=== PATIENT | female | born 1940 | race Asian ===

== ENCOUNTER → 2018-07-02 15:34 | Outpatient (CLI) | payer MEDICARE, OTHER, SELFPAY ==
--- NOTE | 2018-07-02 | DI.MRI.S_ITS ---
PROCEDURE: MR LUMBAR SPINE WO CON INDICATIONS: BACK PAIN TECHNIQUE: Noncontrast sagittal T1 spin echo and T2 fast echo, sagittal STIR, axial T1 and T2 fast spin echo through the lumbar spine. In cases with scoliosis, additional coronal T2 fast spin echo may be performed. COMPARISON: None. FINDINGS: Image quality: Excellent. Alignment and Curvature: There is grade 1 L4-L5 and L5-S1 degenerative anterolisthesis. There is trace L2-L3 and L3-L4 degenerative retrolisthesis. There is 11? of convex left lumbar spine scoliosis. Bone Marrow: Reactive endplate change is noted adjacent to the L2-L3, L3-L4, L4-L5 and L5-S1 disc. No acute vertebral body compression fractures. Spinal Cord: Conus medullaris terminates at the L1-2 disc level. Visualized cord demonstrates normal signal and size. Paraspinous Soft Tissues: No paravertebral masses. L1-L2: Loss of disc signal and slight loss of disc height. Mild, diffuse disc bulge. Mild bilateral facet hypertrophy. Mild narrowing of the central canal. Mild bilateral neural foraminal narrowing. No neural impingement. L2-L3: Loss of disc signal and height. Mild, diffuse disc bulge. Mild bilateral facet hypertrophy. Mild narrowing of the central canal. Mild bilateral neural foraminal narrowing. No neural impingement. L3-L4: Loss of disc signal and height. Mild, diffuse disc bulge. Mild to moderate bilateral facet hypertrophy. Mild ligamentum flavum hypertrophy. Mild to moderate narrowing of the central canal. Mild to moderate bilateral neural foraminal narrowing. No neural impingement. L4-L5: Loss of disc signal and height. Moderate, diffuse disc bulge. Severe bilateral facet hypertrophy. 8 mm synovial cyst projects off the left facet encroaching on the neural foramen and impinging on the exiting left L4 nerve root. Severe central stenosis. Severe bilateral neural foraminal narrowing with flattening deformity the exiting L4 nerve roots. L5-S1: Loss of disc signal. Mild, diffuse disc bulge. Moderate bilateral facet hypertrophy. Mild narrowing of the central canal. Moderate to severe left neural foraminal narrowing slight flattening deformity exiting left L5 nerve root. IMPRESSION: 1. Grade 1 L4-L5 and L5-S1 degenerative spondylolisthesis. Trace L2-L3 and L3-L4 spondylolisthesis. 2. Convex left scoliosis. 3. Multilevel degenerative disc disease. 4. Multilevel facet arthropathy. 5. Severe L4-L5 central canal stenosis. Mild to moderate L3-L4 central canal narrowing. Mild L1-L2, L2-L3 and L5-S1 central canal narrowing. 6. Severe bilateral L4-L5 neural foraminal narrowing. Moderate to severe left L5-S1 neural foraminal narrowing. Mild to moderate bilateral L3-L4 neural foraminal narrowing. Mild bilateral L1-L2 and L2-L3 neural foraminal narrowing. Dictated by: Елена Fuentes MD, PhD on 07/02/2018 at 17:22 Approved by: Елена Fuentes MD, PhD on 07/02/2018 at 17:39
== END ==
PROVIDERS: Visit Provider Orthopaedic Surgery Orthopaedic Surgery of the Spine
DX: M43.16 Spondylolisthesis, lumbar region (principal); M43.17 Spondylolisthesis, lumbosacral region; M41.86 Other forms of scoliosis, lumbar region; M51.36 Other intervertebral disc degeneration, lumbar region; M51.37 Other intervertebral disc degeneration, lumbosacral region; M48.061 Spinal stenosis, lumbar region without neurogenic claudication; M48.07 Spinal stenosis, lumbosacral region; M47.816 Spondylosis without myelopathy or radiculopathy, lumbar region; M47.817 Spondylosis without myelopathy or radiculopathy, lumbosacral region; M54.5 Low back pain
CPT/HCPCS: 72148

== ENCOUNTER 2018-09-13 05:37 | Inpatient (IN) | payer MEDICARE, OTHER, SELFPAY ==
[2018-09-03 08:52] VITALS: BMI 21.9
[2018-09-13] VITALS (17 sets, daily range): BP systolic 100–126; BP diastolic 56–76; PULSE 75–107; RESP 7–17; TEMP 36.1–36.6; O2SAT 96–100; BMI 22.5
--- NOTE | 2018-09-13 | DI.RAD.S_ITS ---
PROCEDURE: XR LUMBAR SPINE 2-3V INDICATIONS: L3-4 L4-5 TLIF TECHNIQUE: 2 views of the lumbar spine were acquired. COMPARISON: None. FINDINGS: L3-L5 paraspinal zuleyma and pedicle screw fixation. There also interbody cage grafts. There is expected intraoperative alignment Dictated by: Charles Garcia M.D. on 09/13/2018 at 12:31 Approved by: Charles Garcia M.D. on 09/13/2018 at 12:32
[2018-09-13] MEDS: LACTATED RINGERS 1,000 ML 42 ML IV ×2 (07:08→10:33)
--- NOTE | 2018-09-13 07:51 | PM.PREOP ---
Pre-operative Note Interval Note History & Physical reviewed/Exam performed by Physician: Yes Changes to H&P: No
[2018-09-13] MEDS: CEFAZOLIN 2 GM/100 ML FROZ.PIGGY IV (07:56)
--- NOTE | 2018-09-13 08:35 | SUR.OPER ---
Prone on spine table, head in foam head support, padded chest and pelvic supports, gel pad at knees, lower legs supported by pillows; nipples, genitalia and toes free of pressure, arms secured on foam padded arm boards at <90 degrees abduction. Tape over blanket at thigh secured to table.
[2018-09-13] MEDS: BUPIVACAINE 0.25% W/ EPI 30 ML VIAL INJ (08:53)
[2018-09-13] MEDS: BUPIVACAINE LIPOSOME 266 MG/20 ML VIAL INJ (08:54)
[2018-09-13] MEDS: ACETAMINOPHEN IV 1,000 MG/100 ML VIAL 400 MG IV (11:37)
--- NOTE | 2018-09-13 12:18 | P.OP_ITS ---
Operative Date/Time/Diagnoses Date of procedure: 09/13/18 Time of procedure: 08:10 Pre-op diagnosis: 1. L3-4, L4-5 spinal stenosis with neurogenic claudication 2. L3-4, L4-5 spondylolisthesis Post-op diagnosis: same Procedure & Clinicians Procedure: 1. L3-4, L4-5 Postero-lateral and posterior interbody fusion 2. L3-4, L4-5 interbody cage placement. 3. L3-4, L4-5 decompressive laminectomy with bilateral facetecomies 4. L3-4, L4-5 Posterior segmental instrumentation 5. [place] of bone marrow from iliac crest 6. Utilization of microsurgical technique and operating microscope Same procedure as scheduled: Yes Indications: Patient has been having chronic back pain and worsening lumbar radiculopathy. Patient failed multiple conservative management with worsening pain weakness and numbness in her lower extremity. Patient has been having difficulty performing activity of daily living. After discussing risks benefits of treatment options, patient elected proceed with surgery. Surgeon: Nathaly Ann Refractory Technician: Leah Zaidi Click Yes if Unassisted: No Anesthesia Type: General Operative Notes Closure Type: primary Specimen(s): none sent Prosthetic devices, grafts, tissues, transplants, or devices: Globus revolve screws, Rise cages Estimated Blood Loss (mL): 200 Blood products transfused: none Procedure in detail: Patient was seen in the preoperative area. Risks and benefits of the surgery was discussed with the patient. Informed consent was obtained from the patient and placed in the chart. Surgical site was marked. Patient was taken to the operative room. General anesthesia was administered. Prophylactic antibiotic was given to the patient less than 30 min before the incision was made. Patient was placed into a prone position on the Eliel table. Patient's back was then prepped and draped in the sterile fashion. Time- out was performed at this time. Using AP and lateral C-arm imaging the interval between L3-4, L4-5 was identified and marked on patient's back. A 2 inch incision 2 in from midline was made on the right side first. The fascia was incised in line with skin incision. Globus MARS retractors was placed inside the incision and docked onto the L3 and L4 lamina. Using microsurgical technique and operating microscope, a L3 and L4 laminectomy and L3-4, L4-5 facetectomy was performed using a Kerrison rongeur. During the process of decompression more than 75% of bilateral L3-4, L4-5 facets were removed in order to decompress the spinal canal and the lateral recess. The L3-4, L4-5 level was grossly unstable after the decompression was completed and requiring the fusion procedure. Patient was found to have severe central and foramen stenosis at L3-4 L4-5 level. It was fully decompressed after decompression was completed. The disc space at L3-4, L4-5 was identified. And a total diskectomy was performed at L3-4, L4-5 level. The endplates were decorticated using a rasp and shaver. The total diskectomy and decortication was performed at L3-4, L4-5 level in order to to accomplish a L3-4, L4-5 fusion. The local bone from the laminectomy and facetectomy was saved for local bone grafting. After the total diskectomy and decortication was completed, Bio4 bone graft material was combined with local bone that was harvested earlier. At this time, a separate skin is incision was made over the iliac crest. A Jamshidi needle was inserted into the iliac crest through a separate skin incision. 5 cc of bone marrow aspiration was obtained through the separate skin incision using a Jamshidi needle from the iliac crest. The bone marrow aspiration was combined with local bone and the Bio4 bone grafting material. The bone grafting material was placed into the L3-4, L4-5 interbody space along with two cages, one expandable cage at each level. The cages were expanded to their maximum height using the torque limiting screwdriver. At this time a mirror image incision was made on the left side. The fascia was incised in line with the skin incision. Globus MARS retractor was inserted and docked onto the L3-4, L4-5 posterolateral gutter. Using the power drill, posterior-lateral decortication was performed at L3-4, L4-5 level until bleeding cortical bone was identified. The remaining bone grafting material was placed into the L3-4, L4-5 posterior lateral gutter he order to accomplish posterolateral fusion at the L3-4, L4-5 levels. Using the double C-arm technique, pedicle screws were placed into the L3, L4, L5 pedicles bilaterally. This was done by placing the Jamshidi needle into the pedicles, then placing the guidewires over the Jamshidi needle, and finally placing the cannulated screws over the guidewires bilaterally. After the pedicle screws were placed, 2 titanium rods was locked into the heads of the pedicle screws using locking caps and torque limiting screwdriver. Total 6 pedicles screws were placed. Threaded sand mixer operator was used to reduce patient's spondylolisthesis and it was successful in reducing her spondylolisthesis to near anatomic position. After all the hardware was placed, and confirmed with AP and lateral C-arm imaging, the wound was then irrigated with sterile normal saline and packed with Ray-Godfrey gauze for 3 min to accomplish hemostasis. After the gauze was removed the deep fascia was closed with #1 Vicryl suture. The subcutaneous layer was closed with 2-0 Vicryl. The skin was closed with skin ankita. Patient tolerated the procedure well. There were no complications. Complications: none Condition: stable Disposition: PACU Plan for aftercare: Admit to inpatient hospital
[2018-09-13] MEDS: hydrOXYzine 50 MG/ML INJ 25 MG IM (12:35)
[2018-09-13] MEDS: HYDROMORPHONE 2 MG INJ 0.5 MG IV ×2 (12:36→12:49)
[2018-09-13] MEDS: LORazepam 2 MG/ML SYRINGE IV (12:59)
[2018-09-13] MEDS: HYDROMORPHONE 1 MG INJ 0.5 MG IV ×3 (14:26→21:16)
[2018-09-13] MEDS: SODIUM CHLORIDE 0.9% 1,000 ML 100 ML IV ×2 (14:29→23:55)
--- NOTE | 2018-09-13 14:45 | PC.NURSE ---
Dy Shift- Report rec'd from VERONICA Canas in PACU at 1336. Pt arrived to unit room 225 at 1400 via bed, Don at bedside. Lower back Gauze dressing CDI. CMS+, Foot SCD's on Bilaterally. Reports 6/10 aching to lower back, PRN IV Dilaudid given at 1430 with good effect. Pt given ice chips to start, no nausea, Repositioned in bed with HOB elevated. Oriented to post op routines and call light.
[2018-09-13] MEDS: CEFAZOLIN 1 GM/50 ML FROZ.PIGGY IV ×2 (17:06→23:53)
[2018-09-13] MEDS: ACETAMINOPHEN 325 MG TABLET 650 MG PO (18:03)
[2018-09-13] MEDS: hydrOXYzine pamoate 25 MG CAPSULE PO (18:03)
--- NOTE | 2018-09-13 18:10 | PC.NURSE ---
Addendum entered by Trina Neff R.N. 09/13/18 22:35: Reinforced to pt use of call light for staff to assist as needed. Pt acknowledges understanding. Continues to refuse any foods, taking water sparingly. IV fluids as ordered. Ice to back as pt reports this is helpful to manage pain. Continuous pulse oximeter in place 93% on room air with sleep. Original Note: Pt resting quietly on back in bed with eyes closed @ beginning of shift. BL foot pumps in place. IV fluids infusing as ordered to left hand iv site. Continuous pulse oximeter in place with oxygen saturation level 94%. Pt rouses to voice and reports pain 5/10 to back incision. Offered pt oral intake and pt declines any and all foods, stating only prefers water. This was provided. Denies nausea. Administered 0.5 mg iv dilaudid and repositioned pt onto right side with ice to back and pillow between legs. Pt does state finds scd's disruptive to rest and these were removed with instructions to continue ankle waving and calf pumping, which pt is observed performing. Admits to minimal improvement in pain after these interventions and requests to move back to back. Administered vistaril and tylenol as per emar and will monitor.
[2018-09-13] MEDS: DOCUSATE 100 MG CAPSULE PO (21:17)
[2018-09-13] MEDS: SENNOSIDES 8.6 MG TABLET 17.2 MG PO (21:17)
[2018-09-13] MEDS: ATORVASTATIN 20 MG TABLET PO (21:18)
[2018-09-13] MEDS: CALCIUM CARB/VIT D3 500/200 TABLET 1 EACH PO (21:18)
[2018-09-14] MEDS: HYDROMORPHONE 1 MG INJ 0.5 MG IV (03:05)
[2018-09-14 06:02] VITALS: BP 93/43; PULSE 83; RESP 16; TEMP 36.9; O2SAT 98
[2018-09-14 06:52] LABS: Hematocrit 28.9 % (36-46); Hemoglobin 9.7 g/dL (12.0-16.0)
[2018-09-14] MEDS: HYDROMORPHONE 0.5 MG INJ IV (06:55)
[2018-09-14 08:00] VITALS: BP 102/62; PULSE 85; RESP 16; TEMP 37.1; O2SAT 98
[2018-09-14] MEDS: OXYCODONE/ACETAMINOPHEN 5/325 TABLET 2 TAB PO ×5 (08:32→22:03)
[2018-09-14] MEDS: DOCUSATE 100 MG CAPSULE PO ×2 (08:34→22:03)
[2018-09-14] MEDS: MULTIVITAMIN 1 TABLET 1 TAB PO (08:34)
[2018-09-14] MEDS: CHOLECALCIFEROL (VITAMIN D3) 1,000 UNIT TABLET 1000 UNIT PO (08:34)
[2018-09-14] MEDS: CALCIUM CARB/VIT D3 500/200 TABLET 1 EACH PO ×2 (08:34→22:02)
[2018-09-14] MEDS: MAGNESIUM OXIDE 400 MG TABLET PO (08:55)
--- NOTE | 2018-09-14 09:03 | CM.DANOTE ---
Addendum entered by Brianna Ramos LPN 09/14/18 09:27: Met with pt as planned. Introduced self and role. Pt reports she is expecting the PT this morning for first session. Pt confirms that her is here, he has just gone to get some breakfast. She was not using any assistive devices prior to the surgery but does have a walker in prep for this. She expects to d/c home with her 's support. Agreed to check in prn after therapy and will be following. Original Note: Discharge Planning/Care Management DCP: assessment: Case received, EMR reviewed. Pt is a 78 year old female who admitted yesterday for a planned spinal surgery: Surgeon: Dr. Ann. Pt arrived from PACU to room 225 at 1400 yesterday afternoon. She has not yet had any therapy. Payer: Medicare and eventuosity. PCP: Suzanne Sears P: discuss in Team Rounds, confirm that OT and PT are seeing pt. Meet with pt and follow for d/c issues and options. CM Discharge Assessment Start: 09/14/18 09:01 Freq: Status: Active Protocol: Document 09/14/18 09:02 ITV (Rec: 09/14/18 09:03 ITV [id number]) Discharge Planning Assessment Advance Directives? No: Information mailed to patient Advance Directives on File No History Provided By Patient Medical Record Prior Living Arrangements House Household Members spouse Whiteboard Updated in Patient Room with Yes name and ext. # of Senior Management Consultant Review Status In Process Next Review Type Continued Stay Review Pre-Anesthesia Assessment Start: 09/03/18 08:52 Freq: Status: Complete Protocol: Document 09/03/18 08:52 CAB (Rec: 09/03/18 09:27 CAB [id number]) Pre-Anesthesia Assessment Patient Information Reviewed Via Phone Assessment Assessment Completed With Patient Diagnostic Results BMP/CMP CBC Comment Outside labs 08/22/18 scanned to record Primary Care Provider Suzanne Sears Seen Specialist in Last 12 Months Yes Specialist Seen Orthopedist Primary Language Italian Preferred Language Polish Weigher Packing Required No Comment Pt understands/speaks croatian well, works best if you speak slowly Height 147.32 cm Weight 47.627 kg Body Mass Index (BMI) 21.9 Hearing Ability Normal Visual Impairment No Limitations Visual Assist None Dentition Type Teeth, Natural Present Barriers to Learning Language Hx Anesthesia Reactions No Hx Family Anesthesia Reaction No Hx Malignant Hyperthermia No Hx Blood Transfusions Yes: r/t Hx Blood Transfusion Reaction No Anesthesia Review Requested No Supervisor Labor Gang No Alcohol Intake Frequency Other: None Smoking Status Former smoker how long ago did patient quit smoking Quit 1991 Substance Use Type does not use Pain Present Pain Reported Musculoskeletal Symptoms Back Pain Difficulty Walking Joint Pain Radiating Pain into Limb History of Falling (Recent or History of No ) Patient is completely paralyzed or No completely immobile Mental Status Oriented to own ability Is patient on oxygen? No Does patient have CONNELLY/SOB No Hx Sleep Apnea No Currently Taking a Beta Emiliano No Can You Climb a Flight of Stairs Without Yes SOB Hx Chest Pain No Hx SOB No Hx Syncope or Dizziness No Anti-Coagulant Therapy No Has a Pc Analyst No Cardiac Testing No Hx Pacemaker/ICD No Pacemaker Rep Required? No Cardiac Clearance Received Not Applicable Diet Type At Home Regular dysphagia No Urinary Catheter Present No Hx Urinary Self Catheterization No Diabetes No: Pre-diabetes, pt states resolved Patient No Lactating No Hx Drug Resistant Organism No Presence of External or Internal Medical No Devices Have you traveled outside the [facility] in the last 30 days? Marital Status Lives With spouse Prior Living Arrangements House Support System Spouse Patient Discharge Plan Description Return Home Comment Pt advised 2 day length of stay per surgeon's office Feels Safe in Current Environment Yes Been Physically Hurt or Threatened By a No Person in Current Environment Do you have thoughts of harming yourself None or others? Are you currently considering suicide? No Do you have a plan to hurt yourself or No Plan others? Do You Have Any Spiritual Beliefs That No May Affect Your HC Choices? Do You Have Any Cultural Practices That No May Affect Your HC Choices? Spiritual Referral None Who Can We Speak to About Patient's Care Family, friends Identifying Code for Release of Patient Declines to issue Information Health Care Proxy/Next of Kin Moiz () Health Care Proxy [phone] Emergency Contact Name Moiz () Emergency Contact [phone] Advance Directives? No: Information mailed to patient Requested Patient Bring Advanced Yes Directives DOS PAC Instructions Durable medical equipment Medications to take/avoid Nasal antibiotic No ETOH/petroleum product on skin DOS NPO Post-op transportation Pre-surgical wash Sturdy shoes/comfortable clothes Do not bring valuables and remove jewelry
--- NOTE | 2018-09-14 10:31 | PT.IIE ---
Current Diagnoses Other secondary scoliosis, lumbar region (09/13/18) Spondylolisthesis, lumbar region (09/13/18) Other spondylosis with radiculopathy, lumbar region (09/13/18) Surgery Performed Operation Date: 09/13/18 07:45 Actual Procedures p L3-4,L4-5 TLIF w/Posterior Instru. - Nathaly Ann MD Surgical History (Last Updated 09/03/18 @ 08:57 by Yessy Costello, RN) History of section (Acute) Hx of appendectomy (Acute) Hx of esophagogastroduodenoscopy (Acute 07/11/17) Medical History (Last Updated 09/03/18 @ 09:12 by Yessy Costello RN) Arthritis (Acute) Eczema (Acute) Former smoker (Acute) HLD (hyperlipidemia) (Acute) Heartburn (Acute) Leg fracture, left (Acute) Migraines (Acute) Osteoarthritis (Acute) Osteoporosis (Acute) Pre-diabetes (Acute) Sciatica (Acute) Physical Therapy Inpatient Evaluation/Re-Eval M1 PT/OT-IP Prior Functional Status Start: 09/14/18 13:01 Freq: NEEDED Status: Active Protocol: Document 09/14/18 10:31 AB (Rec: 09/14/18 13:12 [id number]) Medical Review Prior Functional Status Medical History Reviewed Yes Communication able to make needs known Mobility and Gait pt stated that she is independent with all mobilities and ambulation without AD. Social History Household Members spouse Living Arrangements House Number of Floors (Floors) One Floor Number of Stairs To Enter/Railing? 6 steps from the garage with R rail ascending 3 steps from the front withour rails Home Environment Standard Height Toilet Walk in Shower Home Equipment Front Wheel Walker Hand Held Shower Employment Status Retired M2 PT-IP Current Condition Start: 09/14/18 13:01 Freq: NEEDED Status: Active Protocol: Document 09/14/18 10:31 AB (Rec: 09/14/18 13:12 AB [id number]) Physical Therapy Current Condition Current Condition Evaluation Date 09/14/18 Treatment Diagnosis s/p L3-4 post/pot.lat fusion, L3-4 lami; difficulty in walking Onset Date 09/13/18 Precautions Lumbar Precautions Log Roll No Twisting Limit Bending Lifting Restriction of 10 lbs Gait Belt above Incisional Area Brace received order for chair back brace: on when OOB; can be removed for hygiene care pt provided with back brace M3 PT-IP Subjective Start: 09/14/18 13:01 Freq: NEEDED Status: Active Protocol: Document 09/14/18 10:31 AB (Rec: 09/14/18 13:12 AB [id number]) Subjective Physical Therapy Visit Type Type Initial Evaluation Visit Start Time 10:31 Visit Stop Time 11:31 Total Visit Minutes 0 Number of MERCHANDISE FLOW TEAM LEADER Visits 0 Therapy Pain Assessment Pain When Pain Assessed At Rest Pain Present Pain Present Pain Reported Location back Intensity 1 Scale Used Numeric (1 - 10) Pain Management Techniques Timing of Activity with Medications M4 PT-IP Mobility and Gait Start: 09/14/18 13:01 Freq: NEEDED Status: Active Protocol: Document 09/14/18 10:31 AB (Rec: 09/14/18 13:12 [id number]) PT-Bed Mobility Assessment Rolling Type of Rolling Log Rolling Level of Assist Standby Assistance Supine to Sit Supine to Sit Standby Assistance Scooting Scooting to Edge of Bed Standby Assistance PT-Transfer Assessment Sit to and From Stand Sit to and from Stand Contact Guard Assistance Equipment Transfer Assistive Device Gait Belt Large Based Quad Cane Orthotic/Prosthetic Devices or Brace: Yes Transfers Transfer Destination Chair Transfer Technique pt ambulated using FWW Transfer Ability Level of Assist Minimal Assistance 1 Person Assistance Use of Upper Extremities Gait Assessment Gait Gait Assistance Required: Minimum Assistance 1 Person Assist Distance (Feet) 75 Able to Maintain Weight Bearing Status Yes During Gait Assistive Devices Assistive Device Gait Belt Front Wheeled Walker Orthotic/Prosthetic Devices or Brace: No Gait Deviations General Gait Pattern Antalgic Decreased Stride Length Decreased Feet Clearance Narrow Based Gait Factors Limiting Gait Function Factors Limiting Gait Function Decreased Activity Tolerance Decreased Strength Difficulty Following Directions Incoordination Limited Range of Motion Pain Poor Balance Poor Safety Awareness PT-Balance Assessment Sitting Balance and Reactions Static Sitting Balance Ability Good Dynamic Sitting Balance Ability Good Standing Balance and Reactions Static Standing Balance Ability Fair Dynamic Standing Balance Ability Fair Device Used FWW M5 PT-IP Objective Assessments Start: 09/14/18 13:01 Freq: NEEDED Status: Active Protocol: Document 09/14/18 10:31 AB (Rec: 09/14/18 13:12 [id number]) Orientation Orientation/Cognition Level of Alertness Alert Orientation Name Age Birthday Month Date Year Day of Week Place Situation Language Function Ability No Deficits Noted Safety Awareness Decreased Safety Awareness Gross Range of Motion Lower Extremity ROM Assessment Within Functional Limits Strength Lower Extremity Strength Assessment Bilaterally Impaired Comments Strength Comments RLE: 4-/5 LLE: 3+/5 Sensation Assessment Sensation Gross Sensation WNL Muscle Tone Muscle Tone WNL Yes M6 PT-IP Treatment Start: 09/14/18 13:01 Freq: NEEDED Status: Active Protocol: Document 09/14/18 10:31 AB (Rec: 09/14/18 13:12 AB [id number]) Physical Therapy Treatment Education Education Provided Precautions Weight Bearing Status Post-Op Packet Safety M7 PT-IP Assessment and Plan Start: 09/14/18 13:01 Freq: NEEDED Status: Active Protocol: Document 09/14/18 10:31 AB (Rec: 09/14/18 13:12 AB [id number]) PT Summary Assessment and Plan Potential Rehabilitation Potential Good Status of Condition at Evaluation Stable Summary Impairments Pain ROM Strength Balance Coordination Sensation Tone Cognition Bed Mobility Transfers Gait Activity Tolerance Assessment Summary pt rquiring min A with mobility and will likely improve during hospital stay. pt plans to go home with sposue to assist. will have to conduct caregiver training if appropriate and stair climbing training. Goals Bed Mobility Goal Independent Transfer Goal Independent Front Wheeled Walker Gait Goal Standby Assistance Front Wheel Walker Gait Distance 150 Other Goals up/down 6 steps with R rail ascending Days to Meet Goals 5 Frequency of Treatment Frequency Of Treatment Twice a Day Treatment Plan Physical Therapy Treatment Plan Bed Mobility Training Transfer Training Gait Training Therapeutic Exercise Balance Retraining Post Op Education Discharge Planning Hot or Cold Pack Neuromuscular Re-ed Coordination Retraining Manual Therapy Recommendations To Nursing Amount of Assist Needed 1 Person Assist Discharge Recommendations PT Discharge Recommendations Home with 04/12 Assist
--- NOTE | 2018-09-14 10:34 | PM.PNPO.1 ---
Subjective Date Patient Seen: 09/14/18 Time Patient Seen: 10:35 Interval history: Pain is mild currently after taken a pain pill. Her pain was moderate in nature. Denies fever chills. No nausea vomiting. Has not been up with physical therapy yet. Exam Vital Signs (past 8 hours): - 09/14/18 06:02 Temperature 98.4 F Pulse Rate 83 Respiratory Rate 16 Blood Pressure 93/43 L Pulse Oximetry 98 Oxygen Delivery Method Room Air Oxygen Flow Rate 0 Narrative Exam Narrative: Pleasant 78-year-old female resting comfortably in bed in no apparent distress. Motor functions intact to the bilateral lower extremities. Sensation grossly intact to light touch. Both legs are warm and dry. Lumbar dressing is clean, dry and intact. Objective Labs Result Diagrams: 09/14/18 06:31 Labs: Laboratory Results - last 24 hr 09/14/18 06:31 Hgb 9.7 L Hct 28.9 L Assessment & Plan Post-op Postoperative Procedures Operation Date: 09/13/18 07:45 Actual Procedures Side Surgeon p L3-4,L4-5 TLIF w/Posterior Instru. Nathaly Ann MD Postop day 1 1. L3-4, L4-5 Postero-lateral and posterior interbody fusion 2. L3-4, L4-5 interbody cage placement. 3. L3-4, L4-5 decompressive laminectomy with bilateral facetecomies 4. L3-4, L4-5 Posterior segmental instrumentation 5. [place] of bone marrow from iliac crest 6. Utilization of microsurgical technique and operating microscope Mobilize with physical therapy. ELAYNE Fraah when ambulating. Likely discharge home tomorrow.
[2018-09-14 12:00] VITALS: BP 106/64; PULSE 76; RESP 16; TEMP 36.8; O2SAT 97
--- NOTE | 2018-09-14 14:21 | OT.IP.EVAL ---
Current Diagnoses Other secondary scoliosis, lumbar region (09/13/18) Spondylolisthesis, lumbar region (09/13/18) Other spondylosis with radiculopathy, lumbar region (09/13/18) Surgery Performed Operation Date: 09/13/18 07:45 Actual Procedures p L3-4,L4-5 TLIF w/Posterior Instru. - Nathaly Ann MD Past Medical History (Last Updated 09/03/18 @ 09:12 by Yessy Costello RN) Arthritis (Acute) Eczema (Acute) Former smoker (Acute) HLD (hyperlipidemia) (Acute) Heartburn (Acute) Leg fracture, left (Acute) Migraines (Acute) Osteoarthritis (Acute) Osteoporosis (Acute) Pre-diabetes (Acute) Sciatica (Acute) Surgical History (Last Updated 09/03/18 @ 08:57 by Yessy Costello RN) History of section (Acute) Hx of appendectomy (Acute) Hx of esophagogastroduodenoscopy (Acute 07/11/17) Occupational Therapy Inpatient Evaluation/Re-Eval M1 PT/OT-IP Prior Functional Status Start: 09/14/18 13:01 Freq: NEEDED Status: Active Protocol: Document 09/14/18 14:10 CGR (Rec: 09/14/18 14:21 CGR [email or web address]) Medical Review Prior Functional Status Medical History Reviewed Yes Communication able to make needs known Mobility and Gait pt stated that she is independent with all mobilities and ambulation without AD. Social History Household Members spouse Living Arrangements House Number of Floors (Floors) One Floor Number of Stairs To Enter/Railing? 6 steps from the garage with R rail ascending 3 steps from the front without rails Home Environment Standard Height Toilet Walk in Shower Home Equipment Front Wheel Walker Hand Held Shower Employment Status Retired M2 OT-IP Current Condition Start: 09/14/18 14:09 Freq: Status: Active Protocol: Document 09/14/18 14:10 CGR (Rec: 09/14/18 14:21 CGR [email or web address]) Occupational Therapy Current Condition Current Condition Evaluation Date 09/14/18 Treatment Diagnosis back pain s/p L3-5 TLIF Diagnosis Onset Date 09/13/18 Post Operative Precautions Lumbar Precautions Log Roll No Twisting Limit Bending Lifting Restriction of 10 lbs Gait Belt above Incisional Area M3 OT- IP Subjective and Pain Start: 09/14/18 14:09 Freq: Status: Active Protocol: Document 09/14/18 14:10 CGR (Rec: 09/14/18 14:21 CGR [email or web address]) OT- Subjective Occupational Therapy Visit Type Type Initial Evaluation Visit Start Time 10:35 Visit Stop Time 10:55 Total Visit Minutes 40 Notes Eval split into two sessions, first session to overlap with P.T. second session from 1140- 1200 Occupational Therapy Visit Comments Patient Comments Pt agreeable to OT services. States her friends told her about back precautions. Patient/Caregiver Goals To go home. OT Pain Assessment Pain When Pain Assessed At Rest Pain Present Pain Present Pain Reported Location back Intensity 2 Scale Used Numeric (1 - 10) Management Techniques Re-positioning M4 OT- IP ADL's Start: 09/14/18 14:09 Freq: Status: Active Protocol: Document 09/14/18 14:10 CGR (Rec: 09/14/18 14:21 CGR [email or web address]) OT [id number]-[id number] General Evaluation Self-Feeding Ability Independent OT ADL-Grooming General Evaluation Grooming Ability Standby Assistance Areas Needing Assistance Retrieving/Set-up of Grooming Items Combing/Brushing Hair Comments OT Grooming Comments Standing at sink with reminders not to bend to reach sink OT ADL-Oral Care General Eval Oral Care Ability Standby Assistance Areas of Assistance Brushing Teeth Comments Oral Care Comments Standing at sink with reminders not to bend to reach sink OT ADL-Dressing General Eval Upper Body Dressing Ability Independent Lower Body Dressing Ability Independent Comments OT Dressing Comments Seated in chair for socks and underwear without AD. Pt is able to comfortably bring feet to opposite knee without bending for LB dressing. OT ADL-Toileting General Evaluation Toileting Ability Independent Devices Toileting Assistive Devices Grab Bars M5 OT- IP IADL's Start: 09/14/18 14:09 Freq: Status: Active Protocol: Document 09/14/18 14:10 CGR (Rec: 09/14/18 14:21 CGR [email or web address]) OT-Instrumental Activities of Daily Living Home Safety Awareness Awareness of Need for Assistance at Home Decreased Awareness Ability to Problem Solve Emergency Able to Problem Solve Situations Medication Management Medication Management Caregiver Administers Money Management Money Management Caregiver Provides Assistance Meal Preparation Meal Preparation Caregiver Provides Assist Rehab Aide Rehab Aide Caregiver Provides Assist Driving Driving Caregiver Provides Assist M6 OT- IP Functional Cognition Start: 09/14/18 14:09 Freq: Status: Active Protocol: Document 09/14/18 14:10 CGR (Rec: 09/14/18 14:21 CGR [email or web address]) Cognitive Factors Limiting Selfcare Function Cognitive Ability Level of Alertness Alert Patient Orientation Name Age Birthday Month Date Year Day of Week Place Situation Attention Span Ability Capable of Focused Attention Capable of Sustained Attention Ability to Follow Commands Able to Follow One Step Commands Able to Follow One Step Commands with Repetition Memory Description Immediate Impaired Short Term Intact Safety Awareness Decreased Ability to Apply Precautions Underestimates Need for Assistance Problem Solving Ability No deficits Noted OT- Vision and Hearing OT- Hearing Assessment OT- Hearing Assessment WFL OT- Vision Assessment Visual Acuity Glasses For Reading Visual Attentiveness WFL Occular Pursuits WFL Visual Convergence WFL Visual [place] WFL M7 OT- IP Mobility and Balance Start: 09/14/18 14:09 Freq: Status: Active Protocol: Document 09/14/18 14:10 CGR (Rec: 09/14/18 14:21 CGR [email or web address]) OT- Bed Mobility Assessment Rolling Type of Rolling Log Rolling Level of Assistance Independent Bedrails Supine to Sit Supine to Sit Assist Minimal Assistance Sit to Supine Sit to Supine Assist Minimal Assistance OT-Transfer Assessment Sit to and From Stand Sit to and from Stand Contact Guard Assistance Transfers Transfer Ability Minimal Assistance Technique Transfer Destination Bed Chair Toilet Devices Transfer Assistive Devices Bed Rail Gait Belt Comments Mobility Comments Pt states that her leg feels weak and touches her right leg . Per P.T. appears L leg is weak with poor placement during gait. Pt very unstable with gait. OT- Gait Assessment Gait Gait Assistance Required: Minimum Assistance Assistive Devices Assistive Device Gait Belt Comments Gait Ability Comments Ambulated to bathroom and to sink prior to returing to bed. Pt with unsteady gait, reaching for furniture. Will benefit from continued P.T. services. OT- Balance Assessment Sitting Balance and Reactions Static Sitting Balance Ability Normal Dynamic Sitting Balance Ability Normal M8 OT- IP Objective Assessments Start: 09/14/18 14:09 Freq: Status: Active Protocol: Document 09/14/18 14:10 CGR (Rec: 09/14/18 14:21 CGR [email or web address]) OT Gross Range of Motion Upper Extremity Range of Motion Assessment Within Functional Limits OT Strength Comments Strength Comments grossly 4/5 throughout OT- Coordination Assessment Upper Extremity Finger to Nose Test Within Functional Limits Finger Tapping Test Within Functional Limits OT-Muscle Tone Assessment Muscle Tone WNL Yes OT Sensation Assessment Comments Summary Comments Sensation at baseline. Edema Edema Absent M9 OT- IP Assessment and Plan Start: 09/14/18 14:09 Freq: Status: Active Protocol: Document 09/14/18 14:10 CGR (Rec: 09/14/18 14:21 CGR [email or web address]) OT Summary Assessment and Plan Potential Rehabilitation Potential Good Analytic Complexity at Evaluation Moderate Summary OT Impairments Pain Strength Balance Functional Cognition Functional Mobility Grooming Dressing Toileting Bathing Toilet Transfers Shower Transfers Goals Grooming Goal Independent Toileting Goal Independent Bathing Goal Independent Toilet Transfer Goal Independent Shower Transfer Goal Independent Days to Meet Goals 10 Frequency of Treatment Frequency Of Treatment Once a Day Treatment Plan OT Treatment Plan ADL Training Functional Cognition Training Functional Mobility Therapeutic Exercises Patient/Family Education Discharge Planning Discharge Recommendations OT Discharge Recommendations Home with Assistance SNF Rehab Other Discharge Recommendations Depending on progress with gait, will defer to P.T. for gait analysis. Home Equipment Needs recommend shower chair
--- NOTE | 2018-09-14 14:40 | PT.IPTN ---
Current Diagnoses Other secondary scoliosis, lumbar region (09/13/18) Spondylolisthesis, lumbar region (09/13/18) Other spondylosis with radiculopathy, lumbar region (09/13/18) Surgery Performed Operation Date: 09/13/18 07:45 Actual Procedures p L3-4,L4-5 TLIF w/Posterior Instru. - Nathaly Ann MD Physical Therapy Treatment Note M2 PT-IP Current Condition Start: 09/14/18 13:01 Freq: NEEDED Status: Active Protocol: Document 09/14/18 10:31 AB (Rec: 09/14/18 13:12 AB [id number]) Physical Therapy Current Condition Current Condition Evaluation Date 09/14/18 Treatment Diagnosis s/p L3-4 post/pot.lat fusion, L3-4 lami; difficulty in walking Onset Date 09/13/18 Precautions Lumbar Precautions Log Roll No Twisting Limit Bending Lifting Restriction of 10 lbs Gait Belt above Incisional Area Brace received order for chair back brace: on when OOB; can be removed for hygiene care pt provided with back brace M3 PT-IP Subjective Start: 09/14/18 13:01 Freq: NEEDED Status: Active Protocol: Document 09/14/18 14:40 AB (Rec: 09/14/18 15:54 AB [id number]) Subjective Physical Therapy Visit Type Type Treatment Note Visit Start Time 14:40 Visit Stop Time 15:25 Total Visit Minutes 45 Number of BOX STAMPER Visits 0 Physical Therapy Visit Comments Patient Comments pt agreeable to do PT Therapy Pain Assessment Pain When Pain Assessed At Rest Pain Present Pain Present Pain Reported Location back Intensity 6 Scale Used Numeric (1 - 10) Pain Management Techniques Re-positioning Timing of Activity with Medications M4 PT-IP Mobility and Gait Start: 09/14/18 13:01 Freq: NEEDED Status: Active Protocol: Document 09/14/18 14:40 AB (Rec: 09/14/18 15:54 AB [id number]) PT-Bed Mobility Assessment Rolling Type of Rolling Log Rolling Level of Assist Standby Assistance Supine to Sit Supine to Sit Standby Assistance Sit to Supine Sit to Supine Standby Assistance Scooting Scooting to Edge of Bed Standby Assistance PT-Transfer Assessment Sit to and From Stand Sit to and from Stand Contact Guard Assistance Equipment Transfer Assistive Device Gait Belt Front Wheeled Walker Orthotic/Prosthetic Devices or Brace: Yes Transfers Transfer Destination Toilet Transfer Technique pt ambulated using fWW Transfer Ability Level of Assist Minimal Assistance Comments Mobility Comments pt ambulated to the toilet using FWW CGA to min A and cues. pt was able to maintain standing using FWW for support CGA while completing hygiene care and managing brief. pt ambulate towards the sink using FWW CGA to min A and cues and was able to maintain standing CGA while doing handwashing. Gait Assessment Gait Gait Assistance Required: Contact Guard Assist Minimum Assistance Distance (Feet) 100 Able to Maintain Weight Bearing Status Yes During Gait Assistive Devices Assistive Device Gait Belt Front Wheeled Walker Orthotic/Prosthetic Devices or Brace: No Gait Deviations General Gait Pattern Antalgic Factors Limiting Gait Function Factors Limiting Gait Function Decreased Strength Incoordination Pain Poor Balance Poor Safety Awareness Comments Gait Comments pt ambulated in room using FWW ~ 40 ft min to mod A initially. pt witih increase antalgic gait and lurch on L side. pt tends to cross BLE during ambulation. pt educated regarding keeping feet apart. pt understood. pt walked in the hallway using FWW ~ 100 ft CGA to min A and cues. Stair Climbing Assessment Evaluation Level of Assist On Stairs Moderate Assistance 1 Person Assistance Devices Stair Climbing Assistive Devices Right Railing Technique/Endurance Stair Climbing Direction Ascend and Descend Stair Climbing Technique Step to Step Number of Steps Climbed 3 Query Text: Stair Climbing Set # Repetitions (reps) 2 Comments Stair Climbing Comments completed up/down one step in room using FWW min A and cues required. completed up/down 1 steps with L side handle requiring min A and cues. pt completed 3 steps using R rail with pt holding on to B rails for support min A and cues. pt wants to try if she can just hold on to one hand on the rail and completed up/ down 3 steps using R rail with one hand. completed with mod A but with (+) LE buckling requiring mod to max A for recovery. M5 PT-IP Objective Assessments Start: 09/14/18 13:01 Freq: NEEDED Status: Active Protocol: Document 09/14/18 10:31 AB (Rec: 09/14/18 13:12 AB [id number]) Orientation Orientation/Cognition Level of Alertness Alert Orientation Name Age Birthday Month Date Year Day of Week Place Situation Language Function Ability No Deficits Noted Safety Awareness Decreased Safety Awareness Gross Range of Motion Lower Extremity ROM Assessment Within Functional Limits Strength Lower Extremity Strength Assessment Bilaterally Impaired Comments Strength Comments RLE: 4-/5 LLE: 3+/5 Sensation Assessment Sensation Gross Sensation WNL Muscle Tone Muscle Tone WNL Yes M6 PT-IP Treatment Start: 09/14/18 13:01 Freq: NEEDED Status: Active Protocol: Document 09/14/18 14:40 AB (Rec: 09/14/18 15:54 AB [id number]) Physical Therapy Treatment Education Education Provided Precautions Safety M7 PT-IP Assessment and Plan Start: 09/14/18 13:01 Freq: NEEDED Status: Active Protocol: Document 09/14/18 14:40 AB (Rec: 09/14/18 15:54 AB [id number]) PT Summary Assessment and Plan Potential Rehabilitation Potential Good Summary Impairments Pain ROM Strength Balance Coordination Sensation Tone Cognition Bed Mobility Transfers Gait Activity Tolerance Progress Towards Goals Slow Progress - Other Assessment Summary pt progressing slowly with mobility. stated that her legs feels week L>R. pt requiring min A with ambulation and mod A for stair climbing. will conduct caregiver training and stair climbing training again. d/c plan depending if spouse will be able to assist pt safely. Goals Bed Mobility Goal Independent Transfer Goal Independent Front Wheeled Walker Gait Goal Standby Assistance Front Wheel Walker Gait Distance 150 Other Goals up/down 6 steps with R rail ascending Days to Meet Goals 5 Frequency of Treatment Frequency Of Treatment Twice a Day Treatment Plan Physical Therapy Treatment Plan Bed Mobility Training Transfer Training Gait Training Therapeutic Exercise Balance Retraining Post Op Education Discharge Planning Hot or Cold Pack Neuromuscular Re-ed Coordination Retraining Manual Therapy Other Recommendations and Next Treatment caregiver training and stair Focus training Recommendations To Nursing Amount of Assist Needed 1 Person Assist Discharge Recommendations PT Discharge Recommendations Home with 04/12 Assist
[2018-09-14 15:30] VITALS: BP 92/55; PULSE 81; RESP 16; TEMP 36.9; O2SAT 99
[2018-09-14] MEDS: hydrOXYzine pamoate 25 MG CAPSULE PO ×2 (18:04→22:03)
[2018-09-14 20:05] VITALS: BP 122/60; PULSE 104; RESP 16; TEMP 36.8; O2SAT 95
[2018-09-14] MEDS: ATORVASTATIN 20 MG TABLET PO (22:02)
[2018-09-14] MEDS: SENNOSIDES 8.6 MG TABLET 17.2 MG PO (22:03)
[2018-09-15 00:20] VITALS: BP 135/69; PULSE 63; RESP 16; TEMP 37.2; O2SAT 98
[2018-09-15] MEDS: OXYCODONE/ACETAMINOPHEN 5/325 TABLET 2 TAB PO ×2 (05:20→09:32)
[2018-09-15] MEDS: hydrOXYzine pamoate 25 MG CAPSULE PO (05:21)
[2018-09-15 05:29] VITALS: BP 100/55; PULSE 88; RESP 16; TEMP 37; O2SAT 98
[2018-09-15 08:00] VITALS: BP 108/67; PULSE 85; RESP 16; TEMP 36.6; O2SAT 99
[2018-09-15] MEDS: MULTIVITAMIN 1 TABLET 1 TAB PO (08:35)
[2018-09-15] MEDS: MAGNESIUM OXIDE 400 MG TABLET PO (08:35)
[2018-09-15] MEDS: DOCUSATE 100 MG CAPSULE PO (08:35)
[2018-09-15] MEDS: CHOLECALCIFEROL (VITAMIN D3) 1,000 UNIT TABLET 1000 UNIT PO (08:35)
[2018-09-15] MEDS: CALCIUM CARB/VIT D3 500/200 TABLET 1 EACH PO (08:35)
--- NOTE | 2018-09-15 09:01 | PM.DS.1 ---
History of Present Illness Date Patient Seen: 09/15/18 Time Patient Seen: 09:02 Chief complaint: [id number] Narrative: The history and physical examination are contained in the chart and a previously completed note. Please refer to that note for this information. Discharge Providers Date of admission: 09/13/18 05:37 Discharge Date: 09/15/18 Primary care physician: Suzanne Sears MD Consults: 09/13/18 13:39 Consult to Occupational Therapy Evaluate & Treat Comment: Physician Instructions: Evaluate and treat Consult to Physical Therapy Evaluate & Treat Comment: Apply Chair Back Brace, wear when out of bed Physician Instructions: Evaluate and Treat Discharge provider: Malick Chandra MD Summary Discharge Diagnosis: 1. Lumbar spinal stenosis 2. Post hemorrhagic anemia Hospital Course: The patient was admitted to the hospital and taken directly to the operating room on September 13, 2018 where she underwent an L3 through 5 posterior lumbar fusion. She tolerated the procedure well and made good progress with physical therapy. On postoperative day 2 she was felt to be stable for discharge home. Status at Discharge Cognitive/behavioral status at discharge: oriented Functional status at discharge: independent ambulation Overall status at discharge: patient is progressing back to baseline Time Spent with Patient Less than 30 minutes Exam Vital Signs (past 8 hours): - 09/15/18 05:29 Temperature 98.6 F Pulse Rate 88 Respiratory Rate 16 Blood Pressure 100/55 L Pulse Oximetry 98 Oxygen Delivery Method Room Air Oxygen Flow Rate 0 Narrative Exam Narrative: The patient is resting comfortably in bed. She has intact light touch in both lower extremities. She can dorsiflex and plantar flex both toes and ankles. Calves are soft. Objective Labs Result Diagrams: 09/14/18 06:31 Discharge Plan Discharge Plan Patient Disposition: Home Discharge Med Rec/Prescriptions Prescriptions: New oxycodone-acetaminophen 5-325 mg Tablet 2 tab PO Q4HR PRN (Reason: Pain, Severe (7-10)) Qty: 40 RF: 0 Continued magnesium oxide 400 MG capsule 400 mg PO QDAY Qty: 0 RF: 0 acetaminophen [Tylenol Extra Strength] 500 MG tablet 1,000 mg PO HS Qty: 0 RF: 0 vitamin K2 40 mcg Tablet 40 mcg PO DAILY Qty: 0 RF: 0 multivitamin [Multiple Vitamins] 1 EACH tablet 1 tab PO QDAY Qty: 0 RF: 0 cholecalciferol (vitamin D3) [Vitamin D3] 1,000 UNIT tablet 1,000 unit PO QDAY Qty: 0 RF: 0 atorvastatin 20 mg Tablet 20 mg PO BEDTIME RF: 0 glucosamine-chondroitin [Osteo Bi-Flex] 250-200 mg Tablet 1 tab PO BID RF: 0 krill oil 500 mg Capsule 500 mg PO DAILY RF: 0 Caltrate 600 + D 600 mg (1,500 mg)-800 unit Tablet,Chewable 1 tab PO BID RF: 0 Follow up/Referrals: Suzanne Sears MD [Primary Care Provider] - Nathaly Ann MD [Physician] - 2 Weeks Provider Discharge Instructions Diet: Diet as Tolerated and Regular Activity: You may walk as tolerated. Lift no more than 10 lb. Skin/Wound/Dressing Care Report to your healthcare provider any signs of infection, such as:: chills, fever, night sweats, increased pain, unusual drainage and unusual redness Dressing: Keep the dressing clean and dry. Visit Report/Discharge Packet Instructions: DI for Transforaminal Lumbar Interbody Fusion Stand Alone Forms: Surgery Discharge Discharge Data Primary Care Provider: Suzanne Sears Attending Provider: Nathaly Ann Admit Date/Time: 09/13/18 05:37
--- NOTE | 2018-09-15 09:30 | PT.IPTN ---
Current Diagnoses Other secondary scoliosis, lumbar region (09/13/18) Spondylolisthesis, lumbar region (09/13/18) Other spondylosis with radiculopathy, lumbar region (09/13/18) Surgery Performed Operation Date: 09/13/18 07:45 Actual Procedures p L3-4,L4-5 TLIF w/Posterior Instru. - Nathaly Ann MD Physical Therapy Treatment Note M2 PT-IP Current Condition Start: 09/14/18 13:01 Freq: NEEDED Status: Discharge Protocol: Document 09/14/18 10:31 AB (Rec: 09/14/18 13:12 AB [id number]) Physical Therapy Current Condition Current Condition Evaluation Date 09/14/18 Treatment Diagnosis s/p L3-4 post/pot.lat fusion, L3-4 lami; difficulty in walking Onset Date 09/13/18 Precautions Lumbar Precautions Log Roll No Twisting Limit Bending Lifting Restriction of 10 lbs Gait Belt above Incisional Area Brace received order for chair back brace: on when OOB; can be removed for hygiene care pt provided with back brace M3 PT-IP Subjective Start: 09/14/18 13:01 Freq: NEEDED Status: Discharge Protocol: Document 09/15/18 11:25 GGD (Rec: 09/15/18 12:40 GGD [email or web address]) Subjective Physical Therapy Visit Type Type Treatment Note Visit Start Time 11:00 Visit Stop Time 11:25 Total Visit Minutes 25 Number of DIGITIZER Visits 1 Physical Therapy Visit Comments Patient Comments Pt hopes to go home today. Therapy Pain Assessment Pain When Pain Assessed At Rest Pain Present Pain Present Pain Reported Location back Intensity 3 Scale Used Numeric (1 - 10) M4 PT-IP Mobility and Gait Start: 09/14/18 13:01 Freq: NEEDED Status: Discharge Protocol: Document 09/15/18 11:25 GGD (Rec: 09/15/18 12:40 GGD [email or web address]) PT-Bed Mobility Assessment Rolling Type of Rolling Log Rolling Level of Assist Standby Assistance Supine to Sit Supine to Sit Standby Assistance Scooting Scooting to Edge of Bed Standby Assistance PT-Transfer Assessment Sit to and From Stand Sit to and from Stand Contact Guard Assistance Equipment Transfer Assistive Device Gait Belt Front Wheeled Walker Orthotic/Prosthetic Devices or Brace: Yes Transfers Transfer Destination Chair Wheelchair Transfer Ability Level of Assist Contact Guard Assistance Gait Assessment Gait Gait Assistance Required: Contact Guard Assist Distance (Feet) 300 Able to Maintain Weight Bearing Status Yes During Gait Assistive Devices Assistive Device Gait Belt Front Wheeled Walker Orthotic/Prosthetic Devices or Brace: No Gait Deviations General Gait Pattern Antalgic Factors Limiting Gait Function Factors Limiting Gait Function Decreased Strength Incoordination Pain Poor Balance Poor Safety Awareness Stair Climbing Assessment Evaluation Level of Assist On Stairs Contact Guard Assistance Devices Stair Climbing Assistive Devices Right Railing Technique/Endurance Stair Climbing Direction Ascend and Descend Stair Climbing Technique Step to Step Number of Steps Climbed 3 Query Text: Stair Climbing Set # Repetitions (reps) 1 M5 PT-IP Objective Assessments Start: 09/14/18 13:01 Freq: NEEDED Status: Discharge Protocol: Document 09/14/18 10:31 AB (Rec: 09/14/18 13:12 AB [id number]) Orientation Orientation/Cognition Level of Alertness Alert Orientation Name Age Birthday Month Date Year Day of Week Place Situation Language Function Ability No Deficits Noted Safety Awareness Decreased Safety Awareness Gross Range of Motion Lower Extremity ROM Assessment Within Functional Limits Strength Lower Extremity Strength Assessment Bilaterally Impaired Comments Strength Comments RLE: 4-/5 LLE: 3+/5 Sensation Assessment Sensation Gross Sensation WNL Muscle Tone Muscle Tone WNL Yes M6 PT-IP Treatment Start: 09/14/18 13:01 Freq: NEEDED Status: Discharge Protocol: Document 09/15/18 11:25 GGD (Rec: 09/15/18 12:40 GGD [email or web address]) Physical Therapy Treatment Education Education Provided Precautions Safety M7 PT-IP Assessment and Plan Start: 09/14/18 13:01 Freq: NEEDED Status: Discharge Protocol: Document 09/15/18 11:25 GGD (Rec: 09/15/18 12:40 GGD [email or web address]) PT Summary Assessment and Plan Summary Assessment Summary Pt improving mobility. She need less assistance with bed mobility. She was able to progress gait distance. She was safe and stable with stair mobility and needed CGA. She had no LE weakness with mobility. Pt safe for home D/C when medically stable. Frequency of Treatment Frequency Of Treatment Twice a Day Treatment Plan Physical Therapy Treatment Plan Bed Mobility Training Transfer Training Gait Training Therapeutic Exercise Balance Retraining Post Op Education Discharge Planning Hot or Cold Pack Neuromuscular Re-ed Coordination Retraining Manual Therapy Other Recommendations and Next Treatment caregiver training and stair Focus training Recommendations To Nursing Amount of Assist Needed 1 Person Assist Discharge Recommendations PT Discharge Recommendations Home with Assistance
--- NOTE | 2018-09-15 10:33 | PC.NURSE ---
Day shift: Pt to d/c today as long as cleared by PT. script for Percocet given to Pt's spouse.
--- NOTE | 2018-09-15 11:27 | PC.NURSE ---
Day shift: Pt has passed PT and will be going home with her spouse. Taken out to private car by [employer]. Paperwork signed and all questions answered. Pt has all personal belongings. New MD script for Percocet given to spouse. Left AC unit at approx 1145.
== END 2018-09-15 11:57 | disposition home or self-care (01) | DRG 455 ==
PROVIDERS: Admitting Provider Orthopaedic Surgery Orthopaedic Surgery of the Spine; PCP Family Medicine; Visit Provider Orthopaedic Surgery Orthopaedic Surgery of the Spine
PROC: 0SG10AJ Fusion of 2 or more Lumbar Vertebral Joints with Interbody Fusion Device, Posterior Approach, Anterior Column, Open Approach (ICD-10-PCS; principal; 2018-09-13 07:45)
DX: M48.062 Spinal stenosis, lumbar region with neurogenic claudication (principal); M47.26 Other spondylosis with radiculopathy, lumbar region; M41.56 Other secondary scoliosis, lumbar region; M43.16 Spondylolisthesis, lumbar region; Z87.891 Personal history of nicotine dependence
CPT/HCPCS: 36415; 72100; 76000; 85014; 85018; 97116; 97161; 97166; 97530; 97535; C1776; C9290; J0131; J0330; J0690; J1100; J1170; J2060; J2250; J2405; J2704; J3010; J3410

== ENCOUNTER → 2024-02-04 11:51 | Outpatient (CLI) | payer MEDICARE, OTHER, SELFPAY ==
[2018-09-13 14:31] VITALS: BMI 22.5
--- NOTE | 2024-02-04 12:34 | DI.MRI.S_ITS ---
PROCEDURE: MR KNEE LT WO CON INDICATIONS: Unilateral primary osteoarthritis, left knee TECHNIQUE: Noncontrast sagittal PD fast spin echo and T2 fast spin echo with fat saturation, sagittal 3-D FLASH with fat saturation; coronal T1 spin echo and PD fast spin echo with fat saturation, and axial PD fast spin echo with fat saturation through the knee. COMPARISON: None. FINDINGS: Image quality: Excellent. Severe degenerative changes of the knee are noted with severe cartilaginous thinning in the medial greater than patellofemoral greater than lateral compartments with near [id number] configuration in the medial compartment. Severely G degenerated medial meniscus with absence of the apices of the anterior and posterior horns and severely irregular appearance of the posterior horn. Moderate degenerate changes of the lateral meniscus with increased internal signal and some blunting of the apices most notably anterior horn. [id number] knee joint effusion. Several small parameniscal cysts anterior and lateral to the medial and lateral menisci measuring up to 6 mm. Marked irregularity with edema and fluid the posterior to the posterior horns of the menisci suggestive of meniscocapsular separation with suspected small intra-articular loose bodies (sagittal series 7, image 17) measuring up to 2 mm. Anterior cruciate ligament is frayed/torn (sagittal series 7, image 17). Posterior cruciate ligament has intact fibers with minimal increased T2 weighted signal. Medial structures: Increased T2 weighted signal within and surrounding the medial collateral ligament suggestive of grade 2 injury/strain. Increased T2 weighted signal/thickening with suspected tear of the posterior oblique ligament. semimembranosus, semitendinosus muscles and tendons normal. Lateral structures: Abnormal increased T2 weighted signal and thickening of the distal biceps femoris and popliteus tendons and in the tendon of the lateral head of the gastrocnemius. Adjacent bone edema with numerous small bone cysts in an area of matter measuring up to 1.2 cm diameter suggests chronic injury/strain. Iliotibial band appears normal. Anterior structures: Edema in the infrapatellar fat pad is nonspecific. The quadriceps and patellar tendons appear intact. Patellar alignment is normal. No femoral trochlear dysplasia or ventral trochlear prominence. IMPRESSION: Numerous abnormal findings as discussed above most notably related to chronic ACL tear severe degenerate changes in the medial compartment moderate degenerative changes in the patellofemoral lateral compartments, injury/strain or chronic edema in numerous tendons and ligaments as discussed above. Follow-up suggested Dictated by: Nicolas Henderson M.D. on 02/04/2024 at 14:20 Approved by: Nicolas Henderson M.D. on 02/04/2024 at 14:59
== END ==
PROVIDERS: PCP Family Medicine; Referring Provider Orthopaedic Surgery Adult Reconstructive Orthopaedic Surgery; Visit Provider Orthopaedic Surgery Adult Reconstructive Orthopaedic Surgery
DX: M17.12 Unilateral primary osteoarthritis, left knee (principal); S83.512A Sprain of anterior cruciate ligament of left knee, initial encounter; M25.462 Effusion, left knee
CPT/HCPCS: 73721

== ENCOUNTER → 2024-02-07 14:54 | Outpatient (CLI) | payer MEDICARE, OTHER, SELFPAY ==
[2018-09-13 14:31] VITALS: BMI 22.5
--- NOTE | 2024-02-07 14:57 | EKG_ITS ---
[place] [address] [place] [id number] Test Date: 2024-02-07 Pat Name: David Bruce Department: [facility] Room: Gender: Female Supervisor Color Paste Mixing: ALEXANDRA : 1940 Requested By: Order Number: [id number] Reading MD: Gianluca Jones MD Measurements Intervals [place] Rate: 75 P: 24 DC: 116 QRS: 38 QRSD: 100 T: 32 QT: 380 QTc: 424 Interpretive Statements Normal sinus rhythm Nonspecific T wave abnormality Electronically Signed On 02-08-2024 7:37:48 PDT by Gianluca Jones MD
[2024-02-07 16:50] LABS: Add Manual Diff / Slide Review NO; Basophils Absolute Auto 0 /uL (0-100); Basophils Percent Auto 0.6 % (0-2); Eosinophils Absolute Auto 100 /uL (0-450); Eosinophils Percent Auto 2.3 % (2-4); Hematocrit 39.7 % (36-46); Hemoglobin 13.3 g/dL (12.0-16.0); Lymphocytes Absolute Auto 1600 /uL (1100-4500); Lymphocytes Percent Auto 28.5 % (25-40); Mean Corpuscular HGB Conc 33.6 % (30-36); Mean Corpuscular Hemoglobin 32.4 PG (26-34); Mean Corpuscular Volume 96.5 fL (80-100); Monocytes Absolute Auto 300 /uL (0-900); Monocytes Percent Auto 5.9 % (3-14); Neutrophils Absolute Auto 3600 /uL (1500-7000); Neutrophils Percent Auto 62.7 % (50-75); Platelet Count 272 X10^3/uL (150-400); Red Blood Cell Count 4.11 X10^6/uL (4.0-5.2); Red Cell Distribution Width 13.2 % (11.6-14.8); White Blood Cell Count 5.7 X10^3/uL (4.5-11.0)
[2024-02-07 17:01] LABS: Hemoglobin A1C% w Est Avg Glu 5.6 % (4.0-6.0)
[2024-02-07 17:15] LABS: Albumin 4.6 g/dL (3.5-5.0); BUN Creatinine Ratio 34.8 (6-22); Blood Urea Nitrogen 23 mg/dL (7-17); Calcium 10.1 mg/dL (8.4-10.2); Carbon Dioxide 28 mmol/L (22-32); Chloride 102 mmol/L (98-107); Estimated Glomerular Filt Rate > 60 mL/min (>60); Glucose 96 mg/dL (80-110); HEMOLYSIS < 15 (0-50); Potassium 4.9 mmol/L (3.4-5.1); Sodium 138 mmol/L (137-145)
[2024-02-07 17:25] LABS: Prealbumin 32.4 mg/dL (17.6-36.0)
[2024-02-07 17:32] LABS: Vitamin D 25 Hydroxy (D3) 28.7 ng/mL (30.0-100.0)
== END ==
PROVIDERS: PCP Family Medicine; Referring Provider Orthopaedic Surgery Adult Reconstructive Orthopaedic Surgery; Visit Provider Orthopaedic Surgery Adult Reconstructive Orthopaedic Surgery
DX: Z01.812 Encounter for preprocedural laboratory examination (principal); Z01.818 Encounter for other preprocedural examination; R73.9 Hyperglycemia, unspecified; E55.9 Vitamin D deficiency, unspecified; R77.0 Abnormality of albumin
CPT/HCPCS: 36415; 80048; 82040; 82306; 83036; 84134; 85025; 93005; 93010

== ENCOUNTER → 2025-03-19 15:03 | Outpatient (CLI) | payer MEDICARE, OTHER, SELFPAY ==
[2025-01-08 16:02] VITALS: BMI 22.5
[2025-03-19 15:44] LABS: Add Manual Diff / Slide Review NO; Hematocrit 39.3 % (36-46); Hemoglobin 13.4 g/dL (12.0-16.0); Lymphocytes Absolute Auto 1900 /uL (1100-4500); Mean Corpuscular HGB Conc 34.2 % (30-36); Mean Corpuscular Hemoglobin 32.2 PG (26-34); Mean Corpuscular Volume 94.2 fL (80-100); Platelet Count 256 X10^3/uL (150-400)
[2025-03-19 16:04] LABS: Albumin 4.8 g/dL (3.5-5.0); Blood Urea Nitrogen 21 mg/dL (7-17); Calcium 10.1 mg/dL (8.4-10.2); Carbon Dioxide 26 mmol/L (22-32); Chloride 100 mmol/L (98-107); Estimated Glomerular Filt Rate > 60 mL/min (>60); Glucose 101 mg/dL (70-99); HEMOLYSIS 29 (0-50); Potassium 3.8 mmol/L (3.4-5.1); Sodium 137 mmol/L (137-145)
[2025-03-19 16:08] LABS: Hemoglobin A1C% w Est Avg Glu 5.6 % (4.0-6.0)
[2025-03-19 16:12] LABS: Prealbumin 36.0 mg/dL (17.6-36.0)
[2025-03-19 16:24] LABS: Vitamin D 25 Hydroxy (D3) 36.8 ng/mL (30.0-100.0)
== END ==
PROVIDERS: PCP Internal Medicine; Referring Provider Orthopaedic Surgery Adult Reconstructive Orthopaedic Surgery; Visit Provider Orthopaedic Surgery Adult Reconstructive Orthopaedic Surgery
DX: Z01.818 Encounter for other preprocedural examination (principal); R73.9 Hyperglycemia, unspecified; E55.9 Vitamin D deficiency, unspecified; M17.11 Unilateral primary osteoarthritis, right knee
CPT/HCPCS: 36415; 80048; 82040; 82306; 83036; 84134; 85025

== ENCOUNTER 2025-04-06 08:44 | Day surgery (SDC) | payer MEDICARE, OTHER, SELFPAY ==
[2025-01-08 16:02] VITALS: BMI 22.5
[2025-03-30 08:36] VITALS: BMI 22.7
[2025-04-06] VITALS (8 sets, daily range): BP systolic 124–147; BP diastolic 60–89; PULSE 64–95; RESP 12–84; TEMP 36.1–36.5; O2SAT 16–100
--- NOTE | 2025-04-06 06:00 | DI.RAD.S_ITS ---
PROCEDURE: XR KNEE RT 1TO2V INDICATIONS: Post operative imaging of implants TECHNIQUE: 2 view(s) of the knee acquired. COMPARISON: None. FINDINGS: Bones: Patient is status post knee joint arthroplasty. Hardware components are in expected positions. Visualized bony structures are intact. Soft tissues: Overlying postoperative changes are noted. IMPRESSION: Expected immediate postoperative appearance, status post total right knee arthroplasty. Dictated by: Angelo Mueller M.D. on 04/06/2025 at 14:19 Approved by: Angelo Mueller M.D. on 04/06/2025 at 14:19
[2025-04-06] MEDS: MELOXICAM 7.5 MG TABLET 15 MG PO (09:37)
[2025-04-06] MEDS: ACETAMINOPHEN 325 MG TABLET 975 MG PO (09:37)
[2025-04-06] MEDS: LACTATED RINGERS 1,000 ML 42 ML IV ×2 (09:38→14:46)
--- NOTE | 2025-04-06 10:25 | PM.PREOP ---
Pre-operative Note Interval Note History & Physical reviewed/Exam performed by Physician: Yes Changes to H&P: No
[2025-04-06] MEDS: TRANEXAMIC ACID 1,000 MG VIAL 1000 MG INJ ×2 (10:53→12:03)
--- NOTE | 2025-04-06 11:12 | SUR.OPER ---
Supine on padded OR bed. Pillow under head, arms secured on padded armboards <90 degree abduction. Safety belt across torso. Non-operative leg secured with tape over blanket over lower leg. Operative leg secured in DeMayo/Joni/Nathe positioner. Foam padded brace at thigh of operative leg. PA in room at time of room for positioning, all pressure points padded and protected.
[2025-04-06] MEDS: KETOROLAC 30 MG/ML VIAL 15 MG INJ (11:22)
--- NOTE | 2025-04-06 12:26 | P.OP_ITS ---
Operative Date/Time/Diagnoses Date of procedure: 04/06/25 Time of procedure: 10:00 Pre-op diagnosis: Right knee osteoarthritis Post-op diagnosis: same Procedure & Clinicians Procedure: Right total knee arthroplasty Same procedure(s) as scheduled: Yes Surgeon: Neo Lee Assisted?: Yes Book Cleaner: Anabell Rehman Anesthesia Type: Spinal, Sedation, Peripheral nerve block and Local Operative Notes Findings: Severe arthritis Closure Type: primary Applied: implant(s) Estimated Blood Loss (mL): 50 Tourniquet time (min): 44 Procedure in detail: Right Gap-Balanced Prasanth Persona Medial-Congruent Primary Total Knee Arthroplasty Implants: * Size 6 Cruciate Retaining Femoral Component * Size C Tibial Component * Size 10 Medial Congruent Polyethylene Insert * Unresurfaced Patella Procedure Summary: This 84-year-old female patient had previously undergone a contralateral knee replacement with me. She returned for the 2nd side today. Similar to the contralateral side I used very small implants consistent with her small anatomy at 4 ft 10 and 110 lb. Cemented fixation was used given her relatively low bone quality as an 84-year-old female. She is very flexible and minimal bone cuts were used on both the femoral and tibial sides to maximize soft tissue tension. This resulted in utilization of the smallest polyethylene insert in the system, a 10 mm insert, as she was able to fully extend her knee with a 10 mm insert but not with an 11 mm insert. Procedure in Detail: This patient was seen preoperatively and evaluated for knee pain which was refractory to numerous nonoperative treatment modalities. Their pain correlated with radiographic changes demonstrating significant degeneration in the knee joint. The risks and benefits of continued nonoperative management versus op erative management were discussed at length and all of the patient?s questions were answered. Additional educational materials providing further details beyond our discussion in clinic were provided via a publicly available patient education video which included the incidence of medical complications associated with total knee arthroplasty, reasons for revision following total knee arthroplasty, and patient satisfaction rates following total knee arthroplasty. With this understanding of the risks inherent to the procedure, the patient elected to move forward with operative management. Following preoperative optimization, the patient was scheduled for surgery. The patient was met in the preoperative holding area the day of the procedure and all questions were answered. The patient?s nares were swabbed in order to decolonize them from MRSA. Informed consent was signed and the right limb was marked with indelible ink.? The patient was brought back to the operating room where anesthesia was induced. The patient was transferred to the operating table and all bony prominences were padded. The operative site was prepped and draped in the usual sterile fashion. A second prep stick was utilized following drape placement. The incision was marked corresponding to the medial aspect of the tibial tubercle and the patella. Ioban was wrapped circumferentially around the knee. Prior to incision, tranexamic acid and cefazolin were administered. Templating images were displayed. A timeout procedure was performed verifying the patient?s identity, medical comorbidities, allergies, relevant medications, anesthesia type and the surgical plan. All present were in agreement. The assistance of a physician pediatric physician assistant was required for positioning, room setup, soft tissue retraction and wound closure. Without this assistance, the procedure would have been significantly more challenging and time consuming.?? The tourniquet was inflated prior to incision. I made an anterior incision over the knee, dissected through the subcutaneous tissues and identified the lateral border of the VMO. Medial and lateral soft tissue flaps were developed. A mid- vastus arthrotomy was performed ensuring that adequate capsular tissue would remain for closure at the conclusion of the procedure. The knee was brought into extension and the medial soft tissues were released off the joint line of the tibia. Tissue overlying the distal anterior femur was released to allow for later assessment for anterior notching but left in place. A portion of the retropatellar fat pad was excised while protecting the patellar tendon. The patella was everted. The patella was not resurfaced. Osteophytes were excised and a lateral facetectomy was performed. The patella was released from its everted position.?? I flexed the knee to 90 degrees and placed retractors to allow access to the notch. An opening reamer was used to gain access to the femoral canal and an intramedullary zuleyma was introduced into the canal. Diaphyseal fit was obtained in order to plan a distal femoral resection at 5 degrees relative to the anatomic axis. A +0 resection was planned and assessed using an delfina wing. I then made the cut using a sagittal saw. This provided additional access to the femoral notch. The ACL and PCL were excised. Retractors were placed on the lateral and medial tibia. I hyperflexed the knee while externally rotating it to sublux the tibia anteriorly. I placed a Raji retractor posteriorly and used this to provide additional anterior subluxation. The remainder of the PCL root was released. An extramedullary guide was positioned for a resection in slight varus. A +2 resection off the medial tibia interface between cartilage and bone was planned and the tibial cutting jig was pinned in place. I evaluated the depth, varus-valgus alignment and slope of the planned tibial resection prior to making the cut. I cut the tibia with a sagittal saw while using retractors to protect the MCL, patellar tendon, and posterolateral structures.? The knee was repositioned in extension and the Fuzion soft tissue balancing gauge was introduced. This demonstrated that there was equal tension in the medial and lateral compartments of the knee with the knee in full extension and no additional soft tissue releases were necessary. When 40 pounds of force was applied to the Fuzion device, the extension gap opened to 10 mm. I moved the knee into 90 degrees of flexion, and the Fuzion device was recalibrated by removing a 9 mm january to allow assessment of the flexion gap. The Fuzion block was placed perpendicular to the resected surface of the tibia and the resected surface of the distal femur. Forty pounds of traction was applied to match the tension of the extension gap. This externally rotated the femur to 7 degrees. Pins were placed in the 10 mm holes. Appropriate sizing was determined and a 4-in-1 block was placed. This was double checked using the Fuzion device to ensure that it would open to an equal distance as the extension gap when the same amount of force was applied. The Fuzion block was also used to assess flexion gap symmetry. An delfina wing was used to ensure there would be no anterior notching. Retractors were placed to protect the soft tissues during resection. Captured cuts were performed with a sagittal saw for the anterior and posterior femur as well as the corresponding chamfers.?A laminar cigar wrapper and retractors were used to expose the posterior knee and the menisci and posterior osteophytes were removed. Trial components were placed and the construct was assessed. Range of motion was assessed by ensuring the knee could achieve full extension and assessing maximum passive knee flexion by elevating the femur and allowing the heel to passively fall towards the buttock. Gap symmetry was assessed by stressing the medial and lateral compartments in both extension and flexion. Laxity was assessed in both extension and flexion and the polyethylene trial was adjusted with shims as necessary. Patellar tracking was assessed with knee flexion. Once satisfied with the construct, I moved forward with implant insertion. Lug holes were drilled in the femur and the tibia was prepped ensuring appropriate sizing and rotation relative to the tibial tubercle.?? The bony ends were irrigated and cement was prepared. Portions of the anterior chamfer cut were utilized as a cement restrictor in the femur. Cement was placed on the entirety of the undersurface of both the tibial and femoral components. Cement was placed onto the dry tibia and pressurized into the cancellous bone. I impacted the tibial component into place. Cement was removed. The tibia was reduced underneath the femur and placed cement onto the dry surface of the resected femur. I placed the femoral component as well as the intended polyethylene trial. Cement was removed from around the femur. I brought the knee into extension and manually pressurized the construct by pushing on the heel while the cement dried. The knee was bathed in a dilute mixture of betadine and peroxide. A mixture of Ropivacaine, Epinephrine and Toradol was infiltrated throughout the soft tissues into structures including the VMO, patellar tendon, quadriceps tendon, MCL and femoral periosteum. The knee was copiously irrigated with pulse lavage. Once cement had been allowed to dry the knee was again trialed. Range of motion was assessed by ensuring the knee could achieve full extension and assessing maximum passive knee flexion by elevating the femur and allowing the heel to passively fall towards the buttock. Gap symmetry was assessed by stressing the medial and lateral compartments in both extension and flexion. Laxity was assessed in both extension and flexion and the polyethylene trial was adjusted with shims as necessary. Patellar tracking was assessed with knee flexion. The tourniquet was let down and the polyethylene trial was removed. I inspected the knee inspected for excess cement and any residual bleeding. Once hemostasis was achieved I inserted the final polyethylene and ensured appropriate engagement of the dovetail locking mechanism.?? The arthrotomy was closed with non-absorbable interrupted suture ensuring that this extended to the top of the arthrotomy. This was backed up with running barbed suture throughout the arthrotomy. The skin was closed with 2-0 and 3-0 sutures. Surgical glue was applied and a soft dressing was placed.?The sponge, instrument and needle counts were reported as being correct at the end of the case. The patient was transferred from the operating table back to a stretcher. The patient emerged from anesthesia without difficulty and was taken to the PACU in a stable condition.? Plan for aftercare: * Weightbearing as tolerated * Aspirin 81 twice per day for DVT prophylaxis * Multimodal pain regimen with no IV opioids ordered * Anticipate discharge home later today * Follow up at [facility] in 2 weeks for wound check Complications: none
--- NOTE | 2025-04-06 14:08 | SUR.PHASEII ---
pt here. ok for discharge
--- NOTE | 2025-04-06 14:22 | PT.IPTN ---
Current Diagnoses Unilateral primary osteoarthritis, right knee (04/06/25) Surgery Performed Operation Date: 04/06/25 10:45 Actual Procedures p Total Knee Arthroplasty(Right) - Neo Lee MD Physical Therapy Treatment Note M2 PT-IP Current Condition Start: 04/06/25 14:12 Freq: NEEDED Status: Active Protocol: Document 04/06/25 14:12 SAK (Rec: 04/06/25 14:22 SAK [id number]) Physical Therapy Current Condition Current Condition Evaluation Date 04/06/25 Treatment Diagnosis s/p right TKA Onset Date 04/06/25 M3 PT-IP Subjective Start: 04/06/25 14:12 Freq: NEEDED Status: Active Protocol: Document 04/06/25 14:12 SAK (Rec: 04/06/25 14:22 SAK [id number]) Subjective Physical Therapy Visit Type Type Initial Evaluation Visit Start Time 11:45 Visit Stop Time 12:10 Physical Therapy Visit Comments Patient Comments Pt. and in room, pt sitting up on EOB Patient Goals discharge home Therapy Pain Assessment Pain When Pain Assessed At Rest Location back Intensity 0 Scale Used Numeric (0 - 10) M4 PT-IP Mobility and Gait Start: 04/06/25 14:12 Freq: NEEDED Status: Active Protocol: Document 04/06/25 14:12 SAK (Rec: 04/06/25 14:22 [facility] [id number]) PT-Bed Mobility Assessment Scooting Scooting to Edge of Standby Assistance Bed PT-Transfer Assessment Sit to and From Stand Sit to and from Contact Guard Assistance Stand Equipment Transfer Assistive Front Wheeled Walker Device Transfer Ability Level of Assist Contact Guard Assistance Gait Assessment Gait Gait Assistance Standby Assistance Required: Distance (Feet) 12 Assistive Devices Assistive Device Gait Belt,Front Wheeled Walker Gait Deviations General Gait Pattern Antalgic,Decreased Stride Length,Decreased Feet Clearance Factors Limiting Gait Function Factors Limiting Decreased Strength Gait Function Comments Gait Comments cues to slow down, turn slowly Stair Climbing Assessment Comments Stair Climbing reviewed correct stair gait with patient and ( Comments up first with left, down first with right) PT-Balance Assessment Sitting Balance and Reactions Static Sitting Normal Balance Ability Dynamic Sitting Normal Balance Ability Standing Balance and Reactions Static Standing Good Balance Ability Dynamic Standing Fair Balance Ability Device Used FWW M5 PT-IP Objective Assessments Start: 04/06/25 14:12 Freq: NEEDED Status: Active Protocol: Document 04/06/25 14:12 SAK (Rec: 04/06/25 14:22 [facility] [id number]) Orientation Orientation/Cognition Level of Alertness Alert Orientation Name,Age,Place,Situation Language Function German as Second Language Ability Safety Awareness Understands Safety Issues Memory Description No Deficits Noted Gross Range of Motion Upper Extremity ROM Assessment Within Functional Limits Lower Extremity ROM Assessment Within Functional Limits Strength Upper Extremity Strength Assessment Within Functional Limits Lower Extremity Strength Assessment Within Functional Limits Comments Strength Comments has antigravity strength LAQ and ankle df Coordination Assessment Gross Coordination Gross Coordination WNL Sensation Assessment Sensation Gross Sensation Right LE Impaired,Left LE Impaired Sensation Numbness Description Comments Sensation Comments reported mild numbness M6 PT-IP Treatment Start: 04/06/25 14:12 Freq: NEEDED Status: Active Protocol: Document 04/06/25 14:12 [facility] (Rec: 04/06/25 14:22 [facility] [id number]) Physical Therapy Treatment Exercises Exercises Ankle Pumps,Quad Sets,Heel Slides,Straight Leg Raises, Short Arc Quads Other Treatments Other Treatment reviewed HEP with patient (has prior left TKA) and Performed and issued written HEP. M7 PT-IP Assessment and Plan Start: 04/06/25 14:12 Freq: NEEDED Status: Active Protocol: Document 04/06/25 14:12 SAK (Rec: 04/06/25 14:22 [facility] [id number]) PT Summary Assessment and Plan Potential Rehabilitation Good Potential Status of Condition Stable at Evaluation Summary Impairments ROM,Strength,Gait Assessment Summary Pt. seen post-op right TKA in recovery room to get PT approval for discharge. Patient has recovered quad function, demonstrated good understanding of transfers and gait with use of FWW. Reviewed sequence for stairs and used handout to review HEP for TKA rehab. Instructed importance of edema and pain management, elevation, no limp. Pt. has OP PT scheduled to start April 16. Previously had left TKA with good recovery . Feel she should do well with compliance to HEP and walking. present and also demonstrated good understanding. Pt. to be discharged home. No further inpatient PT needs. Weight Bearing Status Weight Bearing Weight Bear as Tolerated Status Recommendations To Nursing Amount of Assist Standby Assistance,1 Person Assist Needed Discharge Recommendations Other Discharge OP PT Recommendations Transportation Needs Private Vehicle at Discharge
== END 2025-04-06 14:15 | disposition home or self-care (01) ==
LOC: OR 08:46
PROVIDERS: PCP Internal Medicine; Referring Provider Orthopaedic Surgery Adult Reconstructive Orthopaedic Surgery; Visit Provider Orthopaedic Surgery Adult Reconstructive Orthopaedic Surgery
PROC: 0SRC0JZ Replacement of Right Knee Joint with Synthetic Substitute, Open Approach (ICD-10-PCS; CPT 27447; principal; 2025-04-06 10:45)
DX: M17.11 Unilateral primary osteoarthritis, right knee (principal); E78.5 Hyperlipidemia, unspecified
CPT/HCPCS: 27447; 73560; C1776; C1713; J0689; J1100; J1885; J2405; J2704; J3010; J7120